=== PATIENT | female | born 1940 | race Caucasian/White ===

== ENCOUNTER 2017-01-14 09:39 | Inpatient (IN) ==
--- NOTE | 2017-01-13 20:52 | Discharge Summary ---
<Antonia Hernandez E - Last Filed: 01/13/17 20:53> Date of Encounter: 01/13/17 - Discharge Diagnosis (1) Osteoarthritis of right knee Priority: Primary Status: Chronic Qualifiers: Osteoarthritis type: unspecified Qualified Code(s): M17.11 - Unilateral primary osteoarthritis, right knee (2) Diabetes mellitus Priority: Secondary Status: Chronic Qualifiers: Diabetes mellitus type: type 2 Diabetes mellitus complication status: with unspecified complications Diabetes mellitus nursing home insulin use: with terminal clerk use Qualified Code(s): E11.8 - Type 2 diabetes mellitus with unspecified complications; Z79.4 - FPC (current) use of insulin (3) Hypertension Priority: Secondary Status: Chronic Qualifiers: Hypertension type: unspecified Qualified Code(s): I10 - Essential (primary ) hypertension (4) Hyperlipidemia Status: Acute (5) Paroxysmal atrial fibrillation Priority: Secondary Status: Chronic (6) GERD (gastroesophageal reflux disease) Priority: Secondary Status: Chronic Qualifiers: Esophagitis presence: esophagitis presence not specified Qualified Code(s) : K21.9 - Gastro-esophageal reflux disease without esophagitis (7) Obesity Priority: Secondary Status: Chronic Qualifiers: Obesity type: unspecified obesity type Obesity classification: unspecified obesity classification Serious obesity comorbidity presence: unspecified whether serious comorbidity present Qualified Code(s): E66.9 - Obesity, unspecified; Z68.38 - Body mass index (BMI) 38.0-38.9, adult - Discharge Medications Home Medications: Insulin Aspart Prot/Insuln Asp [Novolog Mix 70-30 Flexpen Syrn] 5 unit SQ TIDAC 04/26/15 [History] Insulin Glargine,Hum.rec.anlog [Lantus Solostar] 16 unit SQ HS 04/26/15 [History ] Metoprolol XL (24 HR) Succ [Toprol Xl] 25 mg PO QAM 04/26/15 [History] Pantoprazole Sodium 40 mg PO DAILY 04/26/15 [History] Citalopram [CeleXA] 20 mg PO DAILY 10/22/16 [History] Multivitamin [Multivitamins] 1 tab PO DAILY 10/22/16 [History] Warfarin [Coumadin] 2.5 mg PO Q48H 10/22/16 [History] OxyCODONE Immed Rel [Roxicodone 5 MG] 5 mg PO Q6HR PRN 7 Days #28 tablet [Rx] Enoxaparin [Lovenox] 40 mg SQ BID 01/14/17 [History] Lisinopril/Hydrochlorothiazide [Zestoretic 20-25 mg Tablet] 1 tab PO DAILY 01/14 [History] Metoprolol XL (24 HR) Succ [Toprol Xl] 50 mg PO HS 01/14/17 [History] Simvastatin [Zocor] 40 mg PO HS 01/14/17 [History] Warfarin Sodium 2 mg PO Q48H 01/14/17 [History] Allergies/Adverse Reactions: 3 Allergy/AdvReac Type Severity Reaction Status Date / Time Penicillins AdvReac Rash Verified 01/14/17 10:01 Primary care physician: Hazel Franks, - Patient Status Disposition: Home, Self-Care Condition: Good - Discharge Instructions Follow Up With: Rm Collier MD [Partnered Physician] - Hazel Franks MD [Primary Care Provider] - Additional Instructions: Discharge Instructions: Total Knee Replacement Please call [facility] ([phone]), your Primary Care Physician, or report to the Emergency Room if you have any of the following symptoms: Nausea, vomiting, fever greater that 101.5, swelling, chest pain, shortness of breath, increased pain/redness/drainage/odor for your incision site, numbness/ tingling, or any other concerning symptoms. ACTIVITY:Weight-bearing as tolerated. You may progress off support (crutches or walker) as tolerated. MEDICATIONS: Upon discharge resume your home medications. Take all the medications as prescribed. Take a stool softener if taking narcotic pain medications. Stool softeners are only effective if you drink enough fluids. Drink 6-8 glass of water or fluids a day, unless this is not allowed for another health problem. Despite using stool softeners, if you haven't had a bowel movement in 3 days, please switch to a gentle laxative. Gentle laxatives are sold over the counter. You should have a bowel movement within 24 hours, if not call the office. You will be discharged from the hospital with a prescription for pain medication. You are encouraged to decrease the use of narcotic pain medication as tolerated. Should you require a refill, please call the office. [facility] prescribes narcotic pain medication for only 4-6 weeks after surgery. If you require pain medication beyond this time period, you may be referred to your Primary Care Physician or to the Pain Clinic for further evaluation. Plan ahead for refills on pain medication as many narcotics either need to be picked up at the office or mailed. It is best to call 48-72 hours in advance of needing a prescription refill so you don't run out of medication. To help control the post-operative pain, you may take NSAIDs (Aleve,Advil, Motrin, Ibuprofen, Naprosyn) or Tylenol as prescribed on the bottle in addition to the pain medication. ANTICOAGULATION (blood thinners): Continue your Aspirin, Lovenox or Coumadin as prescribed to help prevent a blood clot in the leg or in the lungs. As long as your incision remains dry and you tolerate the NSAIDs (Aleve, Advil, Motrin, ibuprofen, naprosyn), it is OK to use the NSAIDS while you are taking your anticoagulation medication. Should your incision start to drain, stop the NSAID and contact our office. Common symptoms of blood clot in the legs include: localized pain, swelling, calf tenderness, redness or discoloration of the skin. Blood clot in the lung symptoms include: shortness of breath, rapid pulse, sweating, and chest pain that worsens with deep breathing, coughing up blood, lightheadedness, feelings of anxiety. If you experience any of these symptoms notify your physician immediately, go to the emergency room, or if having trouble breathing, call 911. WOUND CARE: Leave the dressing on for 7 to 10days. You may change the dressing if it becomes saturated greater than 50%. Do not get the dressing wet at anytime. Wash your hands with antibacterial soap, rinse and dry prior to any wound care. If you have johanna the visiting nurse or rehab facility can remove the stapes 10-14 days after surgery and place steri-strips across the wound. Leave the steri-strips in place until they fall off on their won. You may let water from the shower run on top of the steri-strips. If you do not have a visiting nurse or rehab facility, you will need to return to the office at 10-14 days for the johanna to be removed. If you have itching or redness around the dressing call the office. FOLLOW-UP: Please follow up with your surgeon in the orthopedic clinic in 4 weeks from the day of surgery. If you have johanna that need to be removed, you will need to come back to the office in 10-14 days from the day of surgery. Discharge Instructions: Total Knee Replacement Please call [facility] ([phone]), your Primary Care Physician, or report to the Emergency Room if you have any of the following symptoms: Nausea, vomiting, fever greater that 101.5, swelling, chest pain, shortness of breath, increased pain/redness/drainage/odor for your incision site, numbness/ tingling, or any other concerning symptoms. ACTIVITY:Weight-bearing as tolerated. You may progress off support (crutches or walker) as tolerated. MEDICATIONS: Upon discharge resume your home medications. Take all the medications as prescribed. Take a stool softener if taking narcotic pain medications. Stool softeners are only effective if you drink enough fluids. Drink 6-8 glass of water or fluids a day, unless this is not allowed for another health problem. Despite using stool softeners, if you haven't had a bowel movement in 3 days, please switch to a gentle laxative. Gentle laxatives are sold over the counter. You should have a bowel movement within 24 hours, if not call the office. You will be discharged from the hospital with a prescription for pain medication. You are encouraged to decrease the use of narcotic pain medication as tolerated. Should you require a refill, please call the office. [facility] prescribes narcotic pain medication for only 4-6 weeks after surgery. If you require pain medication beyond this time period, you may be referred to your Primary Care Physician or to the Pain Clinic for further evaluation. Plan ahead for refills on pain medication as many narcotics either need to be picked up at the office or mailed. It is best to call 48-72 hours in advance of needing a prescription refill so you don't run out of medication. To help control the post-operative pain, you may take NSAIDs (Aleve,Advil, Motrin, Ibuprofen, Naprosyn) or Tylenol as prescribed on the bottle in addition to the pain medication. ANTICOAGULATION (blood thinners): Continue your Aspirin, Lovenox or Coumadin as prescribed to help prevent a blood clot in the leg or in the lungs. As long as your incision remains dry and you tolerate the NSAIDs (Aleve, Advil, Motrin, ibuprofen, naprosyn), it is OK to use the NSAIDS while you are taking your anticoagulation medication. Should your incision start to drain, stop the NSAID and contact our office. Common symptoms of blood clot in the legs include: localized pain, swelling, calf tenderness, redness or discoloration of the skin. Blood clot in the lung symptoms include: shortness of breath, rapid pulse, sweating, and chest pain that worsens with deep breathing, coughing up blood, lightheadedness, feelings of anxiety. If you experience any of these symptoms notify your physician immediately, go to the emergency room, or if having trouble breathing, call 911. WOUND CARE: Leave the dressing on for 7 to 10days. You may change the dressing if it becomes saturated greater than 50%. Do not get the dressing wet at anytime. Wash your hands with antibacterial soap, rinse and dry prior to any wound care. If you have johanna the visiting nurse or rehab facility can remove the stapes 10-14 days after surgery and place steri-strips across the wound. Leave the steri-strips in place until they fall off on their won. You may let water from the shower run on top of the steri-strips. If you do not have a visiting nurse or rehab facility, you will need to return to the office at 10-14 days for the johanna to be removed. If you have itching or redness around the dressing call the office. FOLLOW-UP: Please follow up with your surgeon in the orthopedic clinic in 4 weeks from the day of surgery. If you have johanna that need to be removed, you will need to come back to the office in 10-14 days from the day of surgery. - Hospital Course Hospital course: Ms. Zamorano is a 76 year old female - Time Spent with Patient Total time spent providing and/or coordinating discharge services: - VTE Documentation of Mechanical Device: Venous foot pump, device <Rm Collier - Last Filed: 01/19/17 13:51> Date of Encounter: 01/19/17 Time of Encounter: 13:50 - Discharge Diagnosis (1) Osteoarthritis of right knee Priority: Primary Status: Chronic Qualifiers: Osteoarthritis type: unspecified Qualified Code(s): M17.11 - Unilateral primary osteoarthritis, right knee (2) Diabetes mellitus Priority: Secondary Status: Chronic Qualifiers: Diabetes mellitus type: type 2 Diabetes mellitus complication status: with unspecified complications Diabetes mellitus nursing home insulin use: with terminal clerk use Qualified Code(s): E11.8 - Type 2 diabetes mellitus with unspecified complications; Z79.4 - terminologist (current) use of insulin (3) Hypertension Priority: Secondary Status: Chronic Qualifiers: Hypertension type: unspecified Qualified Code(s): I10 - Essential (primary ) hypertension (4) Hyperlipidemia Priority: Secondary Status: Chronic Qualifiers: Hyperlipidemia type: unspecified Qualified Code(s): E78.5 - Hyperlipidemia , unspecified (5) Paroxysmal atrial fibrillation Priority: Secondary Status: Chronic (6) GERD (gastroesophageal reflux disease) Priority: Secondary Status: Chronic Qualifiers: Esophagitis presence: esophagitis presence not specified Qualified Code(s) : K21.9 - Gastro-esophageal reflux disease without esophagitis (7) Obesity Priority: Secondary Status: Chronic Qualifiers: Obesity type: unspecified obesity type Obesity classification: adult class 2 (BMI 35 ? 39.9) Serious obesity comorbidity presence: unspecified whether serious comorbidity present Body mass index: BMI 38.0-38.9 Qualified Code(s) : E66.9 - Obesity, unspecified; Z68.38 - Body mass index (BMI) 38.0-38.9, adult Primary care physician: Hazel Franks, - Patient Status Functional capacity at discharge: uses cane/walker Overall status at discharge: patient is progressing back to baseline - Hospital Course Hospital course: Ms. Zamorano is a 76 year old female Status post total knee replacement The patient had an uneventful postoperative course. They received antibiotics and physical therapy and were discharged in stable condition. There will follow -up in the office in 2 weeks. - Time Spent with Patient Total time spent providing and/or coordinating discharge services:
[2017-01-14] MEDS ORDERED: Lidocaine -MPF 1% 2 ML VIAL ID ONE (10:04)
[2017-01-14] MEDS ORDERED: Clindamycin 900 MG/50 ML 900 MG/50 ML IV.SOLN IVPB ONE (10:04)
[2017-01-14] MEDS ORDERED: D5% in Lactated Ringers 1,000 ML IVC SCH (10:15)
[2017-01-14] MEDS ORDERED: Dexamethasone 4 MG/ML VIAL ONE ×2 (10:26→12:03)
[2017-01-14] MEDS ORDERED: Ondansetron 4 MG/2 ML VIAL ONE ×2 (10:26→12:03)
[2017-01-14] MEDS ORDERED: *HR* Succinylcholine 200 MG/10 ML VIAL IVP ONE (10:26)
[2017-01-14] MEDS ORDERED: *HR* Midazolam HCl 2 MG/2 ML VIAL ONE (10:27)
[2017-01-14] MEDS ORDERED: *HR* Propofol 200 MG/20 ML VIAL IVP ONE (10:27)
[2017-01-14] MEDS ORDERED: *HR* FentaNYL (PF) 100 MCG/2 ML VIAL ONE (10:27)
[2017-01-14] MEDS ORDERED: Plasma-Lyte A (PH 7.4) 1,000 ML IVC SCH (10:30)
--- NOTE | 2017-01-14 11:09 | Anesthesia Evaluation PreOp ---
Date of Encounter: 01/14/17 Time of Encounter: 11:07 - Past History Planned Operation: R total knee Cardiac History: HTN, Hyperlipidemia, Arrhythmia (AF) Pulmonary History: Former smoker STEAM PAN SPONGER History: Denies Any Significant HX Other Medical History: Diabetes Type II Anesthesia History: No Prior Anesthetic Complications Alcohol Use: none Drug use: none Medications and Allergies Insulin Aspart Prot/Insuln Asp [Novolog Mix 70-30 Flexpen Syrn] 5 unit SQ TIDAC 04/26/15 [History] Insulin Glargine,Hum.rec.anlog [Lantus Solostar] 16 unit SQ HS 04/26/15 [History ] Metoprolol XL (24 HR) Succ [Toprol Xl] 25 mg PO QAM 04/26/15 [History] Pantoprazole Sodium 40 mg PO DAILY 04/26/15 [History] Citalopram [CeleXA] 20 mg PO DAILY 10/22/16 [History] Multivitamin [Multivitamins] 1 tab PO DAILY 10/22/16 [History] Warfarin [Coumadin] 2.5 mg PO Q48H 10/22/16 [History] OxyCODONE Immed Rel [Roxicodone 5 MG] 5 mg PO Q6HR PRN 7 Days #28 tablet [Rx] Enoxaparin [Lovenox] 40 mg SQ BID 01/14/17 [History] Lisinopril/Hydrochlorothiazide [Zestoretic 20-25 mg Tablet] 1 tab PO DAILY 01/14 [History] Metoprolol XL (24 HR) Succ [Toprol XL] 50 mg PO HS 01/14/17 [History] Simvastatin [Zocor] 40 mg PO HS 01/14/17 [History] Warfarin Sodium [Warfarin Sodium] 2 mg PO Q48H 01/14/17 [History] 3 Allergy/AdvReac Type Severity Reaction Status Date / Time Penicillins AdvReac Rash Verified 01/14/17 10:01 - Meds/Allergy Pre-op Review Medications Reviewed: Yes Allergies Reviewed: Yes Beta Blockers on Current Med List: Yes If Beta Blockers taken, Date/Time (Last Dose taken): 01-14-17 metoprolol 7 am Anesthesia Results - Labs Laboratory Tests 12/27/16 12/27/16 12/27/16 10:04 10:04 10:04 WBC 5.7 Hgb 13.2 Hct 41.7 Plt Count 159 Sodium 138 Potassium 4.2 Chloride 101 Carbon Dioxide 27 BUN 19 Creatinine 0.94 Est GFR ( Amer) > 60 Est GFR (Non-Af Amer) 58 L BUN/Creatinine Ratio 20 Glucose 196 H Est Mean Plasma Glucose 146 Hemoglobin A1c 6.7 H - Imaging EKG: report reviewed, image reviewed Additional studies: TTE: Impressions: LVEF 60%. Indeterminate left ventricular diastolic function. Severe bi-atrial enlargement. Dilated RV with normal function. Mild aortic regurgitation. Mild-moderate mitral regurgitation. Moderate-severe tricuspid regurgitation. Moderate pulmonary hypertension. Anesthesia Exam Last Vital Signs Temp 97.7 F 01/14/17 10:15 Pulse 99 01/14/17 10:15 Resp 18 01/14/17 10:15 BP 123/74 01/14/17 10:15 Pulse Ox 96 01/14/17 10:15 Weight: 99 kg - HEENT Pupil (Motor): Pupils equal, EOMI Mallampati: II Teeth: Normal, Poor dentition Oral Opening: Greater than 3 - STEAM PAN SPONGER LOC: Oriented STEAM PAN SPONGER Motor: Normal RUE, Normal LUE, Normal RLE, Normal LLE, Normal Face - Cardiac Rhythm: Regular Murmur: None - Pulmonary Breath Sounds: bilateral Clear Respiratory Effort: Symmetrical Anesthesia Assess/Plan ASA Score: 3 Modified [place] Scale for Level of Consciousness: Cooperative, oriented, and tranquil Anesthetic Plan: General, Regional Monitoring Plan: Standard Monitors Recovery Plan: PACU
[2017-01-14] MEDS ORDERED: ROPIVACAINE HCL/PF 0.5% 30 ML VIAL ONE (11:10)
[2017-01-14] MEDS ORDERED: Bupivacaine/Clonidine Syringe 1 EACH SYRINGE ONE (11:11)
--- NOTE | 2017-01-14 11:13 | History & Physical Report ---
Date of Encounter: 01/14/17 Time of Encounter: 11:12 24 Hour HP Update - Instructions Instructions: If the History and Physical is less than 30 days old and was completed prior to A.M. admission and or procedure and has NOT been updated on calendar day of procedure please complete this update prior to performing procedure. - Update Patient reports changes in Medical Condition: No Changes in examination, assessment, or condition: No Changes in Medication: No Preop tests/diagnostics Reviewed: Yes Surgery Remains Indicated: Yes Consent for Planned Operative Procedure(s) Verified: Yes - Pre-Operative Checklist Preoperative Checklist Indicated: No Prophylactic Antibiotic Ordered: Yes Is VTE Prophylaxis Indicated?: Yes
[2017-01-14] MEDS ORDERED: *HR* Labetalol 20 MG/4 ML SYRINGE IVP PRN (11:45)
[2017-01-14] MEDS ORDERED: Ringers Solution, Lactated 1,000 ML IVC SCH (11:45)
[2017-01-14] MEDS ORDERED: *HR* HYDROmorphone (PF) 1 MG/ML SYRINGE IVP PRN ×2 (11:45→13:55)
[2017-01-14] MEDS ORDERED: Albuterol 2.5 MG/3 ML NEBULIZER IH ONE (11:45)
[2017-01-14] MEDS ORDERED: Ondansetron 4 MG/2 ML VIAL IVP ONE (11:45)
--- NOTE | 2017-01-14 11:45 | Anesthesia Procedures ---
Date of Encounter: 01/14/17 Time of Encounter: 11:20 Procedures: Anesthesia - Nerve Block Procedure Date: 01/14/17 Time: 11:20 Allergies/Adv Reactions: PCN Pre-op Diagnosis: Right knee arthritis Surgical Procedure: Right total knee arthroplasty Checklist: Correct Patient Identifier, Correct procedure, History checked Correct side: Right Blood Thinner: No Monitor Applied: EKG, BP, Pulse Oximetry Supplemental Oxygen via Nasal Cannula (L/min): 2 Sedation: Versed (mg): 2 Sedation: Fentanyl (mcg): 50 Indication: Post Op Analgesia Pre-op Neuro Deficits: Yes Block Type: Femoral, Other (IPAC) Catheter placed: No Sterile Technique: Yes Ultrasound used: Yes Anatomy identified: Yes Visual spread of Local: Yes Neuro Stimulation: Yes Nerve Stimulator Range: 0.2 - 0.4 mA Blood on Needle Aspiration: No Smooth Injection of Local: Yes Pain with Injection of Local: No Prep: Chlorhexadine Needle: 22 x 50 mm Stimuplex, 21 x 100 mm Stimuplex Local: 0.25% Bupivicaine w/Clonidine 20 mcg/cc (20ml IPAC), Ropivacaine (30ml femoral 0.5%) Volume (cc): 50 Number of Attempts: 1 Complications: None/effective block Vitals: Vital Signs Temperature 97.7 F 01/14/17 10:11 Pulse Rate 99 01/14/17 10:11 Respiratory Rate 18 01/14/17 10:11 Blood Pressure 123/74 01/14/17 10:11 O2 Sat by Pulse Oximetry 96 01/14/17 10:11 Temperature 97.7 F 01/14/17 10:15 Pulse Rate 72 01/14/17 11:19 Respiratory Rate 15 01/14/17 11:19 Blood Pressure 132/75 01/14/17 11:19 O2 Sat by Pulse Oximetry 96 01/14/17 11:19
[2017-01-14] MEDS ORDERED: *HR* Magnesium Sulfate 1 GM/2 ML VIAL ONE (11:57)
[2017-01-14] MEDS ORDERED: Ketamine *HR* 500 MG/10 ML MDV ONE (11:57)
[2017-01-14] MEDS ORDERED: Ketorolac 30 MG/ML VIAL ONE (12:04)
[2017-01-14] MEDS ORDERED: Acetaminophen IV 1,000 MG/100 ML INFUS..BTL ONE (12:07)
--- NOTE | 2017-01-14 12:35 | Orthopedic Operative Note ---
Date of procedure: 01/14/17 Pre-op diagnosis: Right knee arthritis Post-op diagnosis: same Procedure: Procedure: Right Total knee replacement Estimated blood loss: 200 cc Hardware: Metal and polyethylene replacement. Arthrex Femur: 6 Tibia: 6 PS insert: 12 Patella: 40 Exam Under anesthesia: Loss of full extension 5 degrees full flexion no instability Procedural Notes: Patient noted to have grade 4 arthritic changes medial compartment patellofemoral joint. Operative procedure: The patient was brought to the operating room and placed on the operating room table. After general anesthesia was administered the operative knee was examined. Findings were noted in the exam under anesthesia. The operative extremity was prepped and draped in sterile surgical fashion. The patient received IV antibiotics prior to skin incision. A standard midline incision was made centered over the patella. The incision was made through the skin and subcutaneous tissue. A medial parapatellar tendon approach was performed. Care was taken to preserve tissue along the medial aspect of the patella. And to protect the patella tendon. The deep MCL was released off the medial tibia. The infra patella fat pad was excised. Knee was brought into flexion. Patient noted to have grade 4 arthritic changes medial compartment and patellofemoral joint. The entry hole was made for the intramedullary femoral guide. The guide was seated in 6 degrees of valgus. Anterior cut was made followed by the distal cut. The ACL the PCL the medial and the lateral menisci were excised. The tibia was subluxed forward. The entry hole was made for the intramedullary tibial guide. Guide was seated to resect 2 mm off the more abnormal side. The knee was brought into flexion the distal femur was sized to a 6. The femoral guide was seated, the anterior cut was made followed by the posterior condylar cut, followed by the chamfer cuts. The finishing guide was seated the box cut was made and the lug holes were drilled. The tibia was sized to a 6, the tibial tray was seated and prepared with the large drill followed by the fin cutter. Trial reduction revealed full extension no varus valgus instability with the appropriate 12 PS Isabella. The patella was everted and cut was made at the level of the insertion of the quadriceps and patella tendon. The patella was sized to 40 the guide was seated and the lug holes are drilled. Trial reduction revealed excellent patella tracking. All trial components were removed all bony surfaces were irrigated. The tibia was cemented first followed by the femur. The 12 PS Isabella was seated and the knee was brought into full extension. The patella was cemented and held in place with the patellar holding clamp. After the cement had hardened, the knee sat for 2 minutes with a Betadine saline solution. The knee was closed by the PA. The knee was then irrigated out with 2 L of pulse irrigation. The extensor mechanism was closed with #2 FiberWire suture and #2 PDS suture. The subcutaneous tissue was then irrigated and closed deep with #1 PDS suture superficially with 0 PDS suture and skin was closed with skin johanna. The patient was then placed in a sterile dressing and a postoperative brace extubated and transferred to recovery room in stable condition. Anesthesia: EMILIO Surgeon: Rm Collier Fortune Teller: Antonia Hernandez Condition: stable Disposition: PACU
--- NOTE | 2017-01-14 13:41 | Anesthesia Evaluation Post Op ---
Date of Encounter: 01/14/17 Time of Encounter: 13:40 - Vital Signs Vital Signs: Vital Signs/O2 Sat, Most Current Temp Pulse Resp BP Pulse Ox 97.3 F L 58 18 101/48 98 01/14/17 13:13 01/14/17 13:33 01/14/17 13:33 01/14/17 13:33 01/14/17 13:33 - Lungs Lungs: Clear Ascult./Percussion - Airway Airway: Non-obstructed - Cardiovascular Regular Rate - Mental Status Mental Status: Alert & Oriented, Answers Appropriately - Pain Pain Scale: 3 Pain Scale used: Numeric (1 - 10) - Nausea Vomiting Nausea Vomiting: Not Present - Hydration Hydration: NPO, Has not voided - Discharge PostOp Status: Transfer Patient to floor
[2017-01-14] MEDS ORDERED: Dextrose Gel 15 GM PO PRN ×2 (13:55)
[2017-01-14] MEDS ORDERED: Naloxone 0.4 MG/ML INJ IVP PRN (13:55)
[2017-01-14] MEDS ORDERED: Sennosides 8.6 MG TABLET PO PRN (13:55)
[2017-01-14] MEDS ORDERED: MOM Conc 10 ML UD.LIQ PO PRN (13:55)
[2017-01-14] MEDS ORDERED: *HR* Dextrose 50 % in Water (Syg) 50 ML SYRINGE IVP PRN (13:55)
[2017-01-14] MEDS ORDERED: Temazepam 15 MG CAPSULE PO PRN (13:55)
[2017-01-14] MEDS ORDERED: Ondansetron 4 MG/2 ML VIAL IVP PRN (13:55)
[2017-01-14] MEDS ORDERED: D5% in Water 1,000 ML IVC PRN (13:55)
[2017-01-14 13:59] LABS: Hematocrit 36.1 % (35.3-44.9); Hemoglobin 11.5 g/dL (11.5-15.4)
[2017-01-14] MEDS: Clindamycin 900 MG/50 ML 900 MG/50 ML IV.SOLN IVPB SCH ×2 (15:54→23:32)
[2017-01-14] MEDS ORDERED: *HR* Enoxaparin 30 MG/0.3 ML SYRINGE SQ SCH (18:00)
[2017-01-14] MEDS: Insulin LISPRO 300 UNITS/3 ML VIAL SQ SCH ×2 (18:09→21:05)
[2017-01-14] MEDS: *HR* Enoxaparin 30 MG/0.3 ML SYRINGE SQ SCH (18:09)
[2017-01-14] MEDS: Metoprolol XL (24 HR) Succ 50 MG TAB.ER.24H PO SCH (21:02)
[2017-01-14] MEDS: Insulin DETEMIR 100 UNIT/ML X5UNITS SQ SCH (21:50)
[2017-01-14] MEDS: Insulin NPH/REG 70/30 100 UNIT/ML (x5UNIT) SQ SCH (22:33)
[2017-01-14 23:25] LABS: INR 1.2; Prothrombin Time 13.4 Seconds (9.4-12.1)
[2017-01-15 05:08] LABS: Hematocrit 33.8 % (35.3-44.9); Hemoglobin 10.8 g/dL (11.5-15.4)
[2017-01-15 05:20] LABS: Calcium 9.1 mg/dL (8.6-10.8); Potassium 4.9 mEq/L (3.5-4.5)
[2017-01-15] MEDS: *HR* Enoxaparin 30 MG/0.3 ML SYRINGE SQ SCH ×2 (05:45→17:29)
[2017-01-15] MEDS ORDERED: *HR* Warfarin 2.5 MG TABLET PO SCH (07:00)
[2017-01-15] MEDS: Multivit/Ca/Min/Fe/FA 1 TAB TABLET PO SCH (08:18)
[2017-01-15] MEDS: Metoprolol XL (24 HR) Succ 50 MG TAB.ER.24H PO SCH ×2 (08:18→21:09)
[2017-01-15] MEDS: Insulin NPH/REG 70/30 100 UNIT/ML (x5UNIT) SQ SCH ×3 (08:18→17:29)
[2017-01-15] MEDS: Insulin LISPRO 300 UNITS/3 ML VIAL SQ SCH ×4 (08:19→21:09)
--- NOTE | 2017-01-15 08:22 | Orthopedics Progress Note ---
Date of Encounter: 01/15/17 Time of Encounter: 08:21 - Assessment and Plan (1) Osteoarthritis of right knee Current Visit: No Status: Chronic Qualifiers: Osteoarthritis type: unspecified Qualified Code(s): M17.11 - Unilateral primary osteoarthritis, right knee (2) Diabetes mellitus Current Visit: No Status: Chronic Qualifiers: Diabetes mellitus type: type 2 Diabetes mellitus complication status: with unspecified complications Diabetes mellitus jail insulin use: with jail use Qualified Code(s): E11.8 - Type 2 diabetes mellitus with unspecified complications; Z79.4 - group home (current) use of insulin (3) Hypertension Current Visit: No Status: Chronic Qualifiers: Hypertension type: unspecified Qualified Code(s): I10 - Essential (primary ) hypertension (4) Hyperlipidemia Current Visit: No Status: Chronic Qualifiers: Hyperlipidemia type: unspecified Qualified Code(s): E78.5 - Hyperlipidemia , unspecified (5) Paroxysmal atrial fibrillation Current Visit: No Status: Chronic (6) GERD (gastroesophageal reflux disease) Current Visit: No Status: Chronic Qualifiers: Esophagitis presence: esophagitis presence not specified Qualified Code(s) : K21.9 - Gastro-esophageal reflux disease without esophagitis (7) Obesity Current Visit: No Status: Chronic Qualifiers: Obesity type: unspecified obesity type Obesity classification: adult class 2 (BMI 35 ? 39.9) Serious obesity comorbidity presence: unspecified whether serious comorbidity present Body mass index: BMI 38.0-38.9 Qualified Code(s) : E66.9 - Obesity, unspecified; Z68.38 - Body mass index (BMI) 38.0-38.9, adult Subjective Interval history: Patient was seen this morning doing well without complaints. Afebrile vital signs stable. Operative extremity: Neurovascularly intact Dressing clean dry and intact Calves nontender Assessment and plan: Continue with postoperative care Hematocrit 33 Objective Vital signs: Vital Signs Temp Pulse Resp BP Pulse Ox 01/15/17 07:19 97.6 F 84 14 105/72 98 01/15/17 04:38 97.6 F 81 18 97/64 100 01/15/17 00:05 97.5 F L 63 16 101/52 99 01/14/17 20:02 97.5 F L 73 18 106/66 98 01/14/17 17:00 97.5 F L 97 16 101/69 94 01/14/17 16:00 97.5 F L 60 16 105/69 100 01/14/17 15:00 56 16 123/59 100 01/14/17 14:30 97.3 F L 77 16 122/77 100 01/14/17 13:56 97.3 F L 64 15 102/65 88 01/14/17 13:43 97.9 F 59 16 113/52 97 01/14/17 13:33 58 18 101/48 98 01/14/17 13:23 65 20 113/69 100 01/14/17 13:13 97.3 F L 55 20 113/63 97 01/14/17 11:19 72 15 132/75 96 01/14/17 10:15 97.7 F 99 18 123/74 96 01/14/17 10:11 97.7 F 99 18 123/74 96 Intake and Output 01/14/17 01/15/17 01/15/17 23:59 07:59 15:59 Intake Total 50 / 50 300 / 300 Output Total 450 / 450 Balance 50 / 50 -150 / -150 Intake: IV Fluids 50 / 50 Cleocin Premix 900 MG/50 ML 900 50 / 50 mg In 50 ml @ 50 mls/hr IVPB Q8HR [facility] Rx#:[id number] Oral 300 / 300 Output: Urine 450 / 450 Other: Blood Glucose* 407 171 - Labs CBC & BMP: 01/15/17 04:57 01/15/17 04:57 Labs: Abnormal lab results Hgb 10.8 g/dL (11.5-15.4) L 01/15/17 04:57 Hct 33.8 % (35.3-44.9) L 01/15/17 04:57 PT 13.4 Seconds (9.4-12.1) H 01/14/17 23:12 Potassium 4.9 mEq/L (3.5-4.5) H 01/15/17 04:57 BUN 24 mg/dL (7-20) H 01/15/17 04:57 Creatinine 1.19 mg/dL (0.57-1.11) H 01/15/17 04:57 Est GFR ( Amer) 53 (> 60) L 01/15/17 04:57 Est GFR (Non-Af Amer) 44 (> 60) L 01/15/17 04:57 Glucose 166 mg/dL (70-99) H 01/15/17 04:57 POC Glucose 407 (58-89) H* 01/14/17 20:27 - VTE Documentation of Mechanical Device: Venous foot pump, device Consult Discharge Plan - Plan Referrals: Hazel Franks MD [Primary Care Provider] -
[2017-01-15] MEDS: *HR* OxyCODONE Immed Rel 5 MG TABLET PO PRN ×2 (11:26→17:30)
--- NOTE | 2017-01-15 12:49 | Event Note ---
Date of Encounter: 01/15/17 Time of Encounter: 12:45 PCR - Right TKR 01/15 POD#.1 Labs: Baseline GFR 58 H/H - Stable GFR 40 - Will give bolus Patient seen at bedside. Pain control: adequate Participating in PT. All questions and concerns addressed. Educated on use of incentive spirometer, ambulation, and hydration. Patient educated on post-operative restrictions and care. Addressed: see above On Warfarin chronically - repeating PT/INR - will continue with Lovenox/ Coumadin resumption until INR therapeutic. D/C plan: [facility] to [facility] - D/C 01/17
[2017-01-15 13:27] LABS: INR 1.3
[2017-01-15] MEDS ORDERED: 0.9 % Sodium Chloride 500 ML IVC ONE (14:30)
[2017-01-15] MEDS: Insulin DETEMIR 100 UNIT/ML X5UNITS SQ SCH (21:11)
--- NOTE | 2017-01-15 22:10 | Physician Discharge Referral ---
<Antonia Hernandez E - Last Filed: 01/15/17 22:07> ExtendedCare Referral Info Transfer To: [facility] Provider in Charge: Dr. Rm Collier - Diagnosis (1) Osteoarthritis of right knee Priority: Primary Status: Chronic (2) Diabetes mellitus Priority: Secondary Status: Chronic (3) Hypertension Priority: Secondary Status: Chronic (4) Hyperlipidemia Priority: Secondary Status: Chronic (5) Paroxysmal atrial fibrillation Priority: Secondary Status: Chronic (6) GERD (gastroesophageal reflux disease) Priority: Secondary Status: Chronic (7) Obesity Priority: Secondary Status: Chronic Expected Duration of Placement: less than 30 days Prognosis: Good Aware of Diagnosis: Patient Aware of Prognosis: Patient - Transfer Medications Home Medications: Insulin Aspart Prot/Insuln Asp [Novolog Mix 70-30 Flexpen Syrn] 5 unit SQ TIDAC 04/26/15 [History] Insulin Glargine,Hum.rec.anlog [Lantus Solostar] 16 unit SQ HS 04/26/15 [History ] Metoprolol XL (24 HR) Succ [Toprol Xl] 25 mg PO QAM 04/26/15 [History] Pantoprazole Sodium 40 mg PO DAILY 04/26/15 [History] Citalopram [CeleXA] 20 mg PO DAILY 10/22/16 [History] Multivitamin [Multivitamins] 1 tab PO DAILY 10/22/16 [History] Warfarin [Coumadin] 2.5 mg PO Q48H 10/22/16 [History] OxyCODONE Immed Rel [Roxicodone 5 MG] 5 mg PO Q6HR PRN 7 Days #28 tablet [Rx] Enoxaparin [Lovenox] 40 mg SQ BID 01/14/17 [History] Lisinopril/Hydrochlorothiazide [Zestoretic 20-25 mg Tablet] 1 tab PO DAILY 01/14 [History] Metoprolol XL (24 HR) Succ [Toprol Xl] 50 mg PO HS 01/14/17 [History] Simvastatin [Zocor] 40 mg PO HS 01/14/17 [History] Warfarin Sodium 2 mg PO Q48H 01/14/17 [History] Allergies/Adverse Reactions: 3 Allergy/AdvReac Type Severity Reaction Status Date / Time Penicillins AdvReac Rash Verified 01/14/17 10:01 - Respiratory Orders Smoking Cessation: Smoking cessation has been advised. For more information, call the [place] [employer] Quit Line at 7-309-OCGR-NOW. - Lab Orders Lab Orders: Other (include drug levels w/frequency) (PT/INR every 48-72 hours until INR therapeutic (2.0-3.0)) - Ancillary Orders May use pressure relief devices daily prn, May go on [place] w/family/respon democrat w /meds at nurse discretion PRN, May consult with Dentist, Sample Maker Original, Track Inspecting Supervisor PRN - Mobility Orders Chair, Ambulate - Rehabiliation Orders Rehab Potential: Good Rehab Orders: ROM Exercises, Evaluation for Physical Therapy, Evaluation for Occupational Therapy Other: Total Knee replacement Precautions x 6 weeks Apply cold therapy wrap 3-6x/day for 20 minutes at a time. Encourage ambulation throughout the day and incentive spirometer 10x/hour. Elevate affected extremity above heart as tolerated. Brace: Wear knee immobilizer at night x 2 weeks. - Treatments Skin tear care topically daily PRN per policy List/Other: Opsite dressing, leave intact until first post-operative visit. If dressing becomes greater than 50% saturated, contact office, remove dressing and place appropriate dressing in its place. Do not allow for dressing to get wet. [place] in place, plan to remove at post-operative day #14-16. - Diet Orders Regular CERTIFICATION: I certify that the transfer of the above named patient to an Extended Care Facility is necessary for the continuing treatment of the diagnosis listed. The above information is true and accurate reflection of patient's current condition. Confidential - Redisclosure prohibited without a patient's written consent. <Rm Collier - Last Filed: 01/19/17 13:51> - Diagnosis (1) Osteoarthritis of right knee Status: Chronic (2) Diabetes mellitus Status: Chronic (3) Hypertension Status: Chronic (4) Hyperlipidemia Status: Chronic (5) Paroxysmal atrial fibrillation Status: Chronic (6) GERD (gastroesophageal reflux disease) Status: Chronic (7) Obesity Status: Chronic - Respiratory Orders Smoking Cessation: Smoking cessation has been advised. For more information, call the [place] [employer] Quit Line at 9-495-UOVZ-NOW. CERTIFICATION: I certify that the transfer of the above named patient to an Extended Care Facility is necessary for the continuing treatment of the diagnosis listed. The above information is true and accurate reflection of patient's current condition. Confidential - Redisclosure prohibited without a patient's written consent.
[2017-01-16] MEDS: *HR* OxyCODONE Immed Rel 5 MG TABLET PO PRN ×3 (06:07→18:05)
[2017-01-16 06:08] LABS: Hematocrit 29.4 % (35.3-44.9); Hemoglobin 9.3 g/dL (11.5-15.4)
[2017-01-16] MEDS: *HR* Enoxaparin 30 MG/0.3 ML SYRINGE SQ SCH (06:08)
[2017-01-16 06:23] LABS: Calcium 8.4 mg/dL (8.6-10.8); Potassium 4.3 mEq/L (3.5-4.5)
--- NOTE | 2017-01-16 06:23 | Orthopedics Progress Note ---
Date of Encounter: 01/16/17 Time of Encounter: 06:22 - Assessment and Plan (1) Osteoarthritis of right knee Current Visit: No Status: Chronic Qualifiers: Osteoarthritis type: unspecified Qualified Code(s): M17.11 - Unilateral primary osteoarthritis, right knee (2) Diabetes mellitus Current Visit: No Status: Chronic Qualifiers: Diabetes mellitus type: type 2 Diabetes mellitus complication status: with unspecified complications Diabetes mellitus [facility] insulin use: with [facility] use Qualified Code(s): E11.8 - Type 2 diabetes mellitus with unspecified complications; Z79.4 - half-way (current) use of insulin (3) Hypertension Current Visit: No Status: Chronic Qualifiers: Hypertension type: unspecified Qualified Code(s): I10 - Essential (primary ) hypertension (4) Hyperlipidemia Current Visit: No Status: Chronic Qualifiers: Hyperlipidemia type: unspecified Qualified Code(s): E78.5 - Hyperlipidemia , unspecified (5) Paroxysmal atrial fibrillation Current Visit: No Status: Chronic (6) GERD (gastroesophageal reflux disease) Current Visit: No Status: Chronic Qualifiers: Esophagitis presence: esophagitis presence not specified Qualified Code(s) : K21.9 - Gastro-esophageal reflux disease without esophagitis (7) Obesity Current Visit: No Status: Chronic Qualifiers: Obesity type: unspecified obesity type Obesity classification: adult class 2 (BMI 35 ? 39.9) Serious obesity comorbidity presence: unspecified whether serious comorbidity present Body mass index: BMI 38.0-38.9 Qualified Code(s) : E66.9 - Obesity, unspecified; Z68.38 - Body mass index (BMI) 38.0-38.9, adult Subjective Interval history: Patient was seen this morning doing well without complaints. Afebrile vital signs stable. Operative extremity: Neurovascularly intact Dressing clean dry and intact Calves nontender Assessment and plan: Continue with postoperative care Plan for discharge when approved at facility Objective Vital signs: Vital Signs Temp Pulse Resp BP Pulse Ox 01/16/17 05:11 98.3 F 93 14 88/56 95 01/15/17 23:11 97.8 F 75 18 94/62 94 01/15/17 20:42 97.4 F L 86 16 105/66 93 01/15/17 16:08 97.5 F L 69 16 106/75 99 01/15/17 11:37 97.6 F 81 14 97/58 99 09/28/17 07:19 97.6 F 84 14 105/72 98 Intake and Output 01/15/17 01/15/17 01/16/17 15:59 23:59 07:59 Intake Total 118 / 118 50 / 50 Output Total 0 / 0 Balance 118 / 118 50 / 50 0 / 0 Intake: Oral 118 / 118 50 / 50 Output: Urine 0 / 0 Other: Meal Breakfast Percent of Meal Consumed 95% # Voids 1 Blood Glucose* 270 90 - Labs CBC & BMP: 01/15/17 04:57 01/15/17 04:57 Labs: Abnormal lab results Hgb 10.8 g/dL (11.5-15.4) L 01/15/17 04:57 Hct 33.8 % (35.3-44.9) L 01/15/17 04:57 PT 14.0 Seconds (9.4-12.1) H 01/15/17 12:57 Potassium 4.9 mEq/L (3.5-4.5) H 01/15/17 04:57 BUN 24 mg/dL (7-20) H 01/15/17 04:57 Creatinine 1.19 mg/dL (0.57-1.11) H 01/15/17 04:57 Est GFR ( Amer) 53 (> 60) L 01/15/17 04:57 Est GFR (Non-Af Amer) 44 (> 60) L 01/15/17 04:57 Glucose 166 mg/dL (70-99) H 01/15/17 04:57 POC Glucose 90 (58-89) H 01/15/17 20:48 - VTE Documentation of Mechanical Device: Venous foot pump, device Consult Discharge Plan - Plan Referrals: Hazel Franks MD [Primary Care Provider] -
[2017-01-16] MEDS ORDERED: *HR* Warfarin 2 MG TABLET PO SCH (07:00)
[2017-01-16] MEDS: Insulin NPH/REG 70/30 100 UNIT/ML (x5UNIT) SQ SCH ×3 (07:49→17:02)
[2017-01-16] MEDS: Multivit/Ca/Min/Fe/FA 1 TAB TABLET PO SCH (07:49)
[2017-01-16] MEDS: Metoprolol XL (24 HR) Succ 50 MG TAB.ER.24H PO SCH ×2 (07:50→21:30)
[2017-01-16] MEDS: Insulin LISPRO 300 UNITS/3 ML VIAL SQ SCH ×4 (07:50→21:29)
[2017-01-16 12:18] LABS: INR 1.5; Prothrombin Time 16.4 Seconds (9.4-12.1)
[2017-01-16] MEDS ORDERED: Warfarin perPT PO PRN (18:00)
[2017-01-16] MEDS: *HR* Enoxaparin 100 MG/ML SYRINGE SQ SCH (18:05)
[2017-01-16] MEDS: Ringers Solution, Lactated 1,000 ML IVC SCH ×3 (18:09→18:42)
[2017-01-16] MEDS: Insulin DETEMIR 100 UNIT/ML X5UNITS SQ SCH (21:29)
[2017-01-17 03:08] LABS: INR 1.6; Prothrombin Time 17.1 Seconds (9.4-12.1)
[2017-01-17] MEDS: *HR* Enoxaparin 100 MG/ML SYRINGE SQ SCH (06:47)
[2017-01-17] MEDS: Multivit/Ca/Min/Fe/FA 1 TAB TABLET PO SCH (08:26)
[2017-01-17] MEDS: Insulin LISPRO 300 UNITS/3 ML VIAL SQ SCH ×2 (08:27→12:23)
[2017-01-17] MEDS: Insulin NPH/REG 70/30 100 UNIT/ML (x5UNIT) SQ SCH ×2 (08:27→12:23)
[2017-01-17] MEDS: Metoprolol XL (24 HR) Succ 50 MG TAB.ER.24H PO SCH (08:27)
[2017-01-17] MEDS: *HR* OxyCODONE Immed Rel 5 MG TABLET PO PRN ×2 (08:27→12:57)
--- NOTE | 2017-01-17 08:35 | Orthopedics Progress Note ---
Date of Encounter: 01/17/17 Time of Encounter: 08:34 Subjective Interval history: Patient was seen this morning doing well without complaints. Afebrile vital signs stable. Operative extremity: Neurovascularly intact Dressing clean dry and intact Calves nontender Assessment and plan: Continue with postoperative care; Anticipate D/C today Objective Vital signs: Vital Signs Temp Pulse Resp BP Pulse Ox 01/17/17 07:20 98.2 F 96 16 127/78 94 01/17/17 03:39 98.0 F 85 16 117/74 97 01/16/17 23:06 98.9 F 103 18 105/71 93 01/16/17 19:00 98.7 F 90 18 115/62 97 01/16/17 16:32 98.2 F 94 16 97/62 95 01/16/17 14:39 86 18 97/56 95 01/16/17 10:26 96 01/16/17 10:25 97.9 F 84 16 86/59 Intake and Output 01/16/17 01/17/17 01/17/17 23:59 07:59 15:59 Intake Total 690 / 690 Output Total 1200 / 1200 800 / 800 Balance -510 / -510 -800 / -800 Intake: Oral 690 / 690 Output: Urine 1200 / 1200 800 / 800 Other: Meal Dinner Percent of Meal Consumed 20% Stool Size Moderate Stool Consistency formed Stool Color Brown # Voids 1 # Bowel Movements 1 Weight 103 kg Blood Glucose* 183 158 Patient Weight 01/17/17 23:59 Weight 103 kg - Labs CBC & BMP: 01/16/17 05:56 01/16/17 05:56 Labs: Abnormal lab results Hgb 9.3 g/dL (11.5-15.4) L D 01/16/17 05:56 Hct 29.4 % (35.3-44.9) L 01/16/17 05:56 PT 17.1 Seconds (9.4-12.1) H 01/17/17 02:25 Sodium 133 mEq/L (136-145) L 01/16/17 05:56 BUN 38 mg/dL (7-20) H D 01/16/17 05:56 Creatinine 1.25 mg/dL (0.57-1.11) H 01/16/17 05:56 Est GFR ( Amer) 50 (> 60) L 01/16/17 05:56 Est GFR (Non-Af Amer) 42 (> 60) L 01/16/17 05:56 BUN/Creatinine Ratio 30 (6-26) H 01/16/17 05:56 Glucose 149 mg/dL (70-99) H 01/16/17 05:56 POC Glucose 183 (58-89) H 01/16/17 20:18 Calcium 8.4 mg/dL (8.6-10.8) L 01/16/17 05:56 - VTE Documentation of Mechanical Device: Venous foot pump, device Consult Discharge Plan - Plan Referrals: Hazel Franks MD [Primary Care Provider] -
[2017-01-17 11:37] VITALS: BP 139/82
[2017-01-17] MEDS ORDERED: *HR* Warfarin 2.5 MG TABLET PO SCH (18:00)
[2017-01-18] MEDS ORDERED: *HR* Warfarin 2 MG TABLET PO SCH (18:00)
== END 2017-01-17 13:00 | disposition home or self-care (01) | DRG 470 ==
LOC: SAMDAY 09:39 → 3NENU 14:35
PROVIDERS: ADMIT Orthopaedic Surgery; ATTEND Orthopaedic Surgery

== ENCOUNTER 2020-11-27 11:16 | Inpatient (IN) ==
[2020-11-27] MEDS ORDERED: 0.9 % Sodium Chloride 1,000 ML ONE (11:59)
[2020-11-27] MEDS ORDERED: 0.9 % Sodium Chloride 1,000 ML IVC ONE (12:00)
[2020-11-27] MEDS ORDERED: Ringers Solution, Lactated 1,000 ML IVC ONE (12:15)
[2020-11-27] MEDS ORDERED: Nystatin Cream 15 GM TUBE TP ONE (12:30)
[2020-11-27 12:48] LABS: Basophils % 0.2 %; Eosinophils # 0.1 K/mcL (0.0-0.6); Eosinophils % 0.7 %; Hematocrit 38.5 % (35.3-44.9); Hemoglobin 12.4 g/dL (11.5-15.4); Immature Granulocytes % 0.6 % (0-4); Lymphocytes # 0.9 K/mcL (0.6-4.6); Lymphocytes % 7.8 %; Mean Corpuscular HGB Conc 32.2 g/dL (31.6-35.5); Mean Corpuscular Hemoglobin 29.1 pg (28.0-33.3); Mean Corpuscular Volume 90.4 fL (83.0-100.0); Mean Platelet Volume 10.8 fL (9.4-12.4); Monocytes # 0.7 K/mcL (0.0-1.3); Monocytes % 6.5 %; Neutrophils # 9.4 K/mcL (1.6-8.9); Platelet Count 192 K/mcL (140-400); Red Blood Count 4.26 M/mcL (3.82-4.97); Red Cell Distribution Width 13.9 % (11.5-14.5); Segmented Neutrophils % 84.2 %; White Blood Count 11.2 K/mcL (4.3-11.1)
[2020-11-27 12:56] LABS: Troponin I 0.04 ng/mL (< 0.04)
[2020-11-27 12:57] LABS: Activated Partial Thrombo Time 50.8 Seconds (26.0-36.0)
[2020-11-27 12:58] LABS: Sodium, Urine 13.2 mEq/L
[2020-11-27] MEDS ORDERED: Cefepime HCl 1,000 MG in Water for inj. (sterile) 10 ML IVP ONE (13:00)
[2020-11-27] MEDS ORDERED: Vancomycin 1,500 MG/265 ML IV.SOLN IVPB ONE (13:00)
[2020-11-27 13:02] LABS: Albumin 2.9 g/dL (3.5-5.7); Albumin/Globulin Ratio 0.9 (1.1-2.2); Bilirubin,Direct 0.2 mg/dL (0.0-0.2); Bilirubin,Indirect 0.5 mg/dL (0.0-1.0); Bilirubin,Total 0.7 mg/dL (0.3-1.0); Calcium 8.2 mg/dL (8.6-10.3); Globulin 3.1 g/dL (2.4-3.5); Magnesium 1.4 mg/dL (1.6-2.6); Phosphorous 7.1 mg/dL (2.7-4.5)
[2020-11-27 13:04] LABS: INR 11.5; Prothrombin Time 124.6 Seconds (9.4-12.1)
[2020-11-27] MEDS ORDERED: 0.9 % Sodium Chloride 250 ML ONE (15:14)
[2020-11-27] MEDS ORDERED: Perflutren Lipid Microsphere 1.3 ML in 0.9 % Sodium Chloride 8.7 ML IVP PRN ×2 (15:15→17:07)
[2020-11-27] MEDS ORDERED: *HR* Norepinephrine 4 MG/4 ML VIAL IVC ONE (15:15)
[2020-11-27 15:46] LABS: Prothrombin Time 133.7 Seconds (9.4-12.1)
[2020-11-27 15:47] LABS: INR 12.4
[2020-11-27] MEDS ORDERED: Naloxone 0.4 MG/ML INJ IVP PRN (16:00)
[2020-11-27] MEDS ORDERED: Acetaminophen 325 MG TABLET PO PRN (16:00)
[2020-11-27] MEDS: Norepinephrine 4 MG/254 ML IV.SOLN IVC SCH ×2 (16:02→23:35)
[2020-11-27 16:03] LABS: Thyroid Stimulating Hormone 1.668 mcIU/mL (0.340-5.600)
[2020-11-27] MEDS ORDERED: *HR* Phytonadione 5 MG TABLET PO ONE (16:03)
[2020-11-27] MEDS: Albumin 25% 25gram/100mL 25 GM/100 ML IV.SOLN IVC SCH ×2 (18:30→19:51)
[2020-11-27] MEDS: Nystatin POWDER 30 GM BOTTLE TP SCH (19:52)
[2020-11-27] MEDS ORDERED: Sodium Bicarbonate 75 MEQ in 0.45 % Sodium Chloride 1,000 ML IVC SCH (21:46)
[2020-11-27] MEDS: Sodium Bicarbonate 75 MEQ in 0.45 % Sodium Chloride 1,000 ML IVC SCH (23:19)
[2020-11-28 00:59] LABS: INR 11.9; Prothrombin Time 127.9 Seconds (9.4-12.1)
[2020-11-28 02:16] LABS: Bacteria,Urine Few per hpf (None-Few); Bilirubin,Urine Negative (Negative); Blood,Urine Large (Negative); Clarity,Urine Turbid (Clear); Color,Urine Yellow (Yellow); Glucose,Urine (UA) Normal (Normal); Hyaline Casts,Urine Few per lpf (None Seen); Ketones,Urine Negative (Negative); Leukocyte Esterase,Urine Small (Negative); Nitrite,Urine Negative (Negative); Protein,Urine 30 mg/dL (Neg-Trace); RBC,Urine 50-100 per hpf (0-3); Specific Gravity,Urine 1.016 (1.010-1.025); Squamous Epithelial Cell,Urine Few per hpf (None-Few); Urobilinogen,Urine Normal (Normal)
[2020-11-28 03:31] LABS: Basophils % 0.2 %; Eosinophils # 0.1 K/mcL (0.0-0.6); Eosinophils % 1.2 %; Hematocrit 29.2 % (35.3-44.9); Immature Granulocytes % 0.5 % (0-4); Lymphocytes # 0.8 K/mcL (0.6-4.6); Lymphocytes % 9.3 %; Mean Corpuscular HGB Conc 33.9 g/dL (31.6-35.5); Mean Corpuscular Hemoglobin 30.1 pg (28.0-33.3); Mean Corpuscular Volume 88.8 fL (83.0-100.0); Mean Platelet Volume 10.3 fL (9.4-12.4); Monocytes # 0.8 K/mcL (0.0-1.3); Monocytes % 9.7 %; Neutrophils # 6.9 K/mcL (1.6-8.9); Platelet Count 144 K/mcL (140-400); Red Blood Count 3.29 M/mcL (3.82-4.97); Red Cell Distribution Width 13.6 % (11.5-14.5); Segmented Neutrophils % 79.1 %; White Blood Count 8.7 K/mcL (4.3-11.1)
[2020-11-28 03:32] LABS: Hemoglobin 9.9 g/dL (11.5-15.4)
[2020-11-28 03:46] LABS: Calcium 7.7 mg/dL (8.6-10.3); Magnesium 1.7 mg/dL (1.6-2.6); Potassium 3.5 mEq/L (3.5-5.1)
[2020-11-28] MEDS: Norepinephrine 4 MG/254 ML IV.SOLN IVC SCH ×2 (04:34→14:30)
[2020-11-28] MEDS: Sodium Bicarbonate 75 MEQ in 0.45 % Sodium Chloride 1,000 ML IVC SCH ×3 (06:03→20:24)
[2020-11-28] MEDS ORDERED: *HR* Phytonadione 10 MG/ML AMPUL SQ ONE (07:53)
[2020-11-28] MEDS: Albumin 25% 25gram/100mL 25 GM/100 ML IV.SOLN IVC SCH ×4 (08:47→18:06)
[2020-11-28] MEDS: Nystatin POWDER 30 GM BOTTLE TP SCH ×3 (08:49→20:23)
[2020-11-28 09:30] LABS: Basophils % 0.1 %; Eosinophils # 0.1 K/mcL (0.0-0.6); Eosinophils % 0.8 %; Hematocrit 30.1 % (35.3-44.9); Immature Granulocytes % 0.5 % (0-4); Lymphocytes # 0.6 K/mcL (0.6-4.6); Lymphocytes % 7.2 %; Mean Corpuscular HGB Conc 33.2 g/dL (31.6-35.5); Mean Corpuscular Hemoglobin 29.5 pg (28.0-33.3); Mean Corpuscular Volume 88.8 fL (83.0-100.0); Mean Platelet Volume 10.3 fL (9.4-12.4); Monocytes # 0.6 K/mcL (0.0-1.3); Neutrophils # 6.4 K/mcL (1.6-8.9); Platelet Count 144 K/mcL (140-400); Red Blood Count 3.39 M/mcL (3.82-4.97); Red Cell Distribution Width 13.7 % (11.5-14.5); Segmented Neutrophils % 83.4 %; White Blood Count 7.6 K/mcL (4.3-11.1)
[2020-11-28 09:37] LABS: INR 2.1; Prothrombin Time 24.2 Seconds (9.4-12.1)
[2020-11-28 09:56] LABS: Calcium 7.6 mg/dL (8.6-10.3); Magnesium 1.7 mg/dL (1.6-2.6); Potassium 3.5 mEq/L (3.5-5.1)
[2020-11-28 12:39] LABS: Adenovirus Not Detected (Not Detect); Bordetella Pertussis Not Detected (Not Detect); Chlamydophila pneumoniae Not Detected (Not Detect); Coronavirus 229E Not Detected (Not Detect); Coronavirus HKU1 Not Detected (Not Detect); Coronavirus NL63 Not Detected (Not Detect); Coronavirus OC43 Not Detected (Not Detect); Human Metapneumovirus Not Detected (Not Detect); Human Rhinovirus/Enterovirus Not Detected (Not Detect); Influenza A Subtype 2009 H1 Not Detected (Not Detect); Influenza B Not Detected (Not Detect); Mycoplasma pneumoniae Not Detected (Not Detect); Parainfluenza Virus 1 Not Detected (Not Detect); Parainfluenza Virus 2 Not Detected (Not Detect); Parainfluenza Virus 3 Not Detected (Not Detect); Parainfluenza Virus 4 Not Detected (Not Detect); Respiratory Syncytial Virus Not Detected (Not Detect)
[2020-11-28 12:40] LABS: SARS-CoV-2 DETECTED (Not Detect)
[2020-11-28 13:30] LABS: INR 1.8; Prothrombin Time 20.1 Seconds (9.4-12.1)
[2020-11-28] MEDS ORDERED: *HR* Heparin 5,000 UNIT/ML VIAL IVP PRN ×2 (16:49)
[2020-11-28] MEDS: Heparin 25,000UNIT/250ML 1/2NS 25,000 UNIT/250 ML IV.SOLN IVC SCH (17:49)
[2020-11-28 19:11] LABS: Hematocrit 24.3 % (35.3-44.9); Mean Corpuscular HGB Conc 32.9 g/dL (31.6-35.5); Mean Corpuscular Hemoglobin 29.3 pg (28.0-33.3); Mean Platelet Volume 10.9 fL (9.4-12.4); Platelet Count 100 K/mcL (140-400); Red Blood Count 2.73 M/mcL (3.82-4.97); Red Cell Distribution Width 13.5 % (11.5-14.5); White Blood Count 5.2 K/mcL (4.3-11.1)
[2020-11-28 19:22] LABS: INR 1.6; Prothrombin Time 18.1 Seconds (9.4-12.1)
[2020-11-28] MEDS ORDERED: Albumin 25% 25gram/100mL 25 GM/100 ML IV.SOLN IVPB ONE (21:11)
[2020-11-29] MEDS: Sodium Bicarbonate 75 MEQ in 0.45 % Sodium Chloride 1,000 ML IVC SCH ×3 (03:13→19:35)
[2020-11-29 03:44] LABS: Mean Corpuscular Volume 88.3 fL (83.0-100.0); Red Cell Distribution Width 13.6 % (11.5-14.5)
[2020-11-29 03:46] LABS: Hematocrit 23.3 % (35.3-44.9); Hemoglobin 7.8 g/dL (11.5-15.4); Immature Platelets 3.9 % (1.1-6.1); Mean Corpuscular HGB Conc 33.5 g/dL (31.6-35.5); Mean Corpuscular Hemoglobin 29.5 pg (28.0-33.3); Mean Platelet Volume 10.3 fL (9.4-12.4); Red Blood Count 2.64 M/mcL (3.82-4.97)
[2020-11-29 04:03] LABS: Calcium 7.9 mg/dL (8.6-10.3); Potassium 3.3 mEq/L (3.5-5.1)
[2020-11-29 04:27] LABS: Magnesium 1.6 mg/dL (1.6-2.6)
[2020-11-29] MEDS ORDERED: Magnesium Sulfate 1 GM/102 ML PIGGYBACK IVPB ONE (04:39)
[2020-11-29] MEDS: Nystatin POWDER 30 GM BOTTLE TP SCH ×3 (08:50→19:33)
[2020-11-29 11:54] LABS: INR 1.3; Prothrombin Time 15.4 Seconds (9.4-12.1)
[2020-11-29] MEDS: Insulin LISPRO 300 UNITS/3 ML VIAL SUBQ SCH ×3 (12:19→20:03)
[2020-11-29] MEDS: Heparin 25,000UNIT/250ML 1/2NS 25,000 UNIT/250 ML IV.SOLN IVC SCH ×2 (14:16→23:20)
[2020-11-29] MEDS ORDERED: *HR* Warfarin 2.5 MG TABLET PO ONE (18:00)
[2020-11-29] MEDS ORDERED: Warfarin perPT PO PRN (18:00)
[2020-11-30 05:22] LABS: Hematocrit 22.8 % (35.3-44.9); Hemoglobin 7.6 g/dL (11.5-15.4); Mean Corpuscular HGB Conc 33.3 g/dL (31.6-35.5); Mean Corpuscular Hemoglobin 29.5 pg (28.0-33.3); Mean Corpuscular Volume 88.4 fL (83.0-100.0); Mean Platelet Volume 10.8 fL (9.4-12.4); Platelet Count 102 K/mcL (140-400); Red Blood Count 2.58 M/mcL (3.82-4.97); Red Cell Distribution Width 13.7 % (11.5-14.5)
[2020-11-30 05:23] LABS: White Blood Count 7.7 K/mcL (4.3-11.1)
[2020-11-30 05:34] LABS: INR 1.2; Prothrombin Time 14.2 Seconds (9.4-12.1)
[2020-11-30 05:45] LABS: Calcium 8.3 mg/dL (8.6-10.3); Potassium 3.8 mEq/L (3.5-5.1)
[2020-11-30 08:12] LABS: VBG Ionized Calcium 1.15 mmol/L (1.15-1.35)
[2020-11-30] MEDS: Sodium Bicarbonate 75 MEQ in 0.45 % Sodium Chloride 1,000 ML IVC SCH (08:31)
[2020-11-30] MEDS: Nystatin POWDER 30 GM BOTTLE TP SCH (08:32)
[2020-11-30] MEDS: Insulin LISPRO 300 UNITS/3 ML VIAL SUBQ SCH ×4 (08:33→19:36)
[2020-11-30] MEDS ORDERED: Nystatin POWDER 30 GM BOTTLE TP PRN (09:35)
[2020-11-30] MEDS ORDERED: Fluticasone Propionate Nasal 50 MCG/SPRAY BOTTLE NS PRN (09:35)
[2020-11-30] MEDS ORDERED: *HR* Heparin 5,000 UNIT/ML VIAL IVP PRN ×2 (09:35)
[2020-11-30] MEDS ORDERED: Naloxone 0.4 MG/ML INJ IVP PRN (09:35)
[2020-11-30] MEDS ORDERED: Warfarin perPT PO PRN (09:35)
[2020-11-30] MEDS ORDERED: Perflutren Lipid Microsphere 1.3 ML in 0.9 % Sodium Chloride 8.7 ML IVP PRN (09:35)
[2020-11-30] MEDS ORDERED: Acetaminophen 325 MG TABLET PO PRN (09:35)
[2020-11-30] MEDS ORDERED: 0.9 % Sodium Chloride 500 ML IVC SCH (11:15)
[2020-11-30] MEDS ORDERED: 0.9 % Sodium Chloride 1,000 ML IVC SCH (11:15)
[2020-11-30] MEDS ORDERED: Insulin LISPRO 300 UNITS/3 ML VIAL SUBQ SCH (11:30)
[2020-11-30] MEDS ORDERED: D5% in Water 1,000 ML IVC PRN (13:17)
[2020-11-30] MEDS ORDERED: Dextrose Gel 15 GM/37.5 ML TUBE PO PRN ×2 (13:17)
[2020-11-30] MEDS ORDERED: *HR* Dextrose 50 % in Water (Vial) 50 ML VIAL IVP PRN (13:17)
[2020-11-30] MEDS ORDERED: Nystatin POWDER 30 GM BOTTLE TP SCH (15:00)
[2020-11-30] MEDS ORDERED: *HR* Warfarin 3 MG TABLET PO ONE (18:00)
[2020-11-30] MEDS: Heparin 25,000UNIT/250ML 1/2NS 25,000 UNIT/250 ML IV.SOLN IVC SCH ×2 (19:34→22:50)
[2020-11-30] MEDS: Insulin DETEMIR 100 UNIT/ML X5UNITS SUBQ SCH (19:39)
[2020-12-01 02:59] LABS: Hematocrit 23.5 % (35.3-44.9); Hemoglobin 7.8 g/dL (11.5-15.4); Mean Corpuscular HGB Conc 33.2 g/dL (31.6-35.5); Mean Corpuscular Hemoglobin 29.7 pg (28.0-33.3); Mean Corpuscular Volume 89.4 fL (83.0-100.0); Mean Platelet Volume 11.3 fL (9.4-12.4); Platelet Count 105 K/mcL (140-400); Red Blood Count 2.63 M/mcL (3.82-4.97); White Blood Count 8.9 K/mcL (4.3-11.1)
[2020-12-01 03:09] LABS: INR 1.2; Prothrombin Time 13.7 Seconds (9.4-12.1)
[2020-12-01 03:21] LABS: Calcium 8.8 mg/dL (8.6-10.3); Magnesium 1.6 mg/dL (1.6-2.6); Potassium 4.2 mEq/L (3.5-5.1)
[2020-12-01] MEDS: Insulin LISPRO 300 UNITS/3 ML VIAL SUBQ SCH ×4 (08:22→20:33)
[2020-12-01] MEDS ORDERED: 0.9 % Sodium Chloride 1,000 ML IVC SCH (16:45)
[2020-12-01] MEDS ORDERED: *HR* Warfarin 3 MG TABLET PO ONE (18:00)
[2020-12-01] MEDS: Insulin DETEMIR 100 UNIT/ML X5UNITS SUBQ SCH (20:43)
[2020-12-02 04:48] LABS: Basophils % 0.3 %; Eosinophils # 0.2 K/mcL (0.0-0.6); Eosinophils % 1.7 %; Hemoglobin 7.5 g/dL (11.5-15.4); Immature Granulocytes % 2.8 % (0-4); Lymphocytes % 10.3 %; Mean Corpuscular HGB Conc 32.6 g/dL (31.6-35.5); Mean Corpuscular Hemoglobin 29.5 pg (28.0-33.3); Mean Corpuscular Volume 90.6 fL (83.0-100.0); Mean Platelet Volume 10.8 fL (9.4-12.4); Monocytes # 1.2 K/mcL (0.0-1.3); Monocytes % 12.6 %; Neutrophils # 6.8 K/mcL (1.6-8.9); Platelet Count 111 K/mcL (140-400); Red Blood Count 2.54 M/mcL (3.82-4.97); Red Cell Distribution Width 14.3 % (11.5-14.5); Segmented Neutrophils % 72.3 %; White Blood Count 9.4 K/mcL (4.3-11.1)
[2020-12-02 04:57] LABS: INR 1.2; Prothrombin Time 13.6 Seconds (9.4-12.1)
[2020-12-02 05:04] LABS: Potassium 4.5 mEq/L (3.5-5.1)
[2020-12-02] MEDS: Insulin LISPRO 300 UNITS/3 ML VIAL SUBQ SCH ×4 (07:38→20:31)
[2020-12-02] MEDS ORDERED: 0.9 % Sodium Chloride 1,000 ML IVC SCH (11:45)
[2020-12-02] MEDS: Heparin 25,000UNIT/250ML 1/2NS 25,000 UNIT/250 ML IV.SOLN IVC SCH (12:18)
[2020-12-02] MEDS: Pantoprazole 40 MG VIAL IVP SCH ×2 (12:51→20:30)
[2020-12-02 15:39] LABS: % Iron Saturation 19 % (15-50); Iron 45 mcg/dL (50-170); Transferrin 166 mg/dL (203-362)
[2020-12-02 15:57] LABS: Ferritin 230 ng/mL (10-120)
[2020-12-02 16:15] LABS: Folate > 22.3 ng/mL (3.0-16.0); Vitamin B12 707 pg/mL (250-1100)
[2020-12-02] MEDS ORDERED: *HR* Warfarin 5 MG TABLET PO ONE (18:00)
[2020-12-02] MEDS: Insulin DETEMIR 100 UNIT/ML X5UNITS SUBQ SCH (20:25)
[2020-12-03 04:45] LABS: Hemoglobin 8.5 g/dL (11.5-15.4); Immature Granulocytes % 1.9 % (0-4); Lymphocytes % 9.6 %; Mean Corpuscular HGB Conc 32.7 g/dL (31.6-35.5); Mean Corpuscular Hemoglobin 30.2 pg (28.0-33.3); Mean Corpuscular Volume 92.5 fL (83.0-100.0); Mean Platelet Volume 10.8 fL (9.4-12.4); Monocytes % 11.1 %; Platelet Count 148 K/mcL (140-400); Red Blood Count 2.81 M/mcL (3.82-4.97); Segmented Neutrophils % 76.3 %
[2020-12-03 04:46] LABS: Basophils % 0.3 %; Eosinophils # 0.1 K/mcL (0.0-0.6); Eosinophils % 0.8 %; Lymphocytes # 1.4 K/mcL (0.6-4.6); Monocytes # 1.7 K/mcL (0.0-1.3); Nucleated Red Blood Cells 0.3 /100 WBC (0)
[2020-12-03 04:47] LABS: Neutrophils # 11.4 K/mcL (1.6-8.9); White Blood Count 14.9 K/mcL (4.3-11.1)
[2020-12-03 04:52] LABS: INR 1.2; Prothrombin Time 13.4 Seconds (9.4-12.1)
[2020-12-03 05:03] LABS: Albumin 3.8 g/dL (3.5-5.7); Albumin/Globulin Ratio 1.6 (1.1-2.2); Bilirubin,Total 1.4 mg/dL (0.3-1.0); Calcium 9.6 mg/dL (8.6-10.3); Globulin 2.4 g/dL (2.4-3.5); Potassium 4.7 mEq/L (3.5-5.1); Total Protein 6.2 g/dL (6.4-8.9)
[2020-12-03] MEDS: Insulin LISPRO 300 UNITS/3 ML VIAL SUBQ SCH ×4 (08:54→23:10)
[2020-12-03] MEDS: Pantoprazole 40 MG VIAL IVP SCH ×2 (08:56→22:11)
[2020-12-03] MEDS: Metoprolol XL (24 HR) Succ 50 MG TAB.ER.24H PO SCH (12:33)
[2020-12-03] MEDS ORDERED: *HR* Metoprolol 5 MG/5 ML VIAL IVP ONE (12:56)
[2020-12-03] MEDS: Ipratropium 1 PUFF INHALER IH SCH ×2 (17:21→19:56)
[2020-12-03] MEDS ORDERED: *HR* Warfarin 5 MG TABLET PO ONE (18:00)
[2020-12-03] MEDS: Insulin DETEMIR 100 UNIT/ML X5UNITS SUBQ SCH (23:17)
[2020-12-04] MEDS: Ipratropium 1 PUFF INHALER IH SCH ×7 (00:08→23:37)
[2020-12-04 03:48] LABS: Eosinophils % 0.1 %; Hematocrit 23.2 % (35.3-44.9); Hemoglobin 7.6 g/dL (11.5-15.4); Lymphocytes # 0.4 K/mcL (0.6-4.6); Lymphocytes % 3.7 %; Mean Corpuscular HGB Conc 32.8 g/dL (31.6-35.5); Mean Corpuscular Hemoglobin 30.4 pg (28.0-33.3); Mean Corpuscular Volume 92.8 fL (83.0-100.0); Mean Platelet Volume 10.7 fL (9.4-12.4); Monocytes # 0.4 K/mcL (0.0-1.3); Monocytes % 3.7 %; Neutrophils # 9.4 K/mcL (1.6-8.9); Nucleated Red Blood Cells 0.2 /100 WBC (0); Platelet Count 102 K/mcL (140-400); Red Cell Distribution Width 15.5 % (11.5-14.5); Segmented Neutrophils % 91.5 %; White Blood Count 10.2 K/mcL (4.3-11.1)
[2020-12-04 04:00] LABS: INR 1.5; Prothrombin Time 16.7 Seconds (9.4-12.1)
[2020-12-04 04:09] LABS: Calcium 9.8 mg/dL (8.6-10.3); Potassium 5.2 mEq/L (3.5-5.1)
[2020-12-04] MEDS: Metoprolol XL (24 HR) Succ 50 MG TAB.ER.24H PO SCH (08:41)
[2020-12-04] MEDS: Insulin LISPRO 300 UNITS/3 ML VIAL SUBQ SCH ×4 (08:48→21:10)
[2020-12-04] MEDS: Pantoprazole 40 MG VIAL IVP SCH ×2 (10:58→21:11)
[2020-12-04 11:34] LABS: Hematocrit 24.4 % (35.3-44.9); Hemoglobin 7.9 g/dL (11.5-15.4)
[2020-12-04 11:57] LABS: Calcium 10.1 mg/dL (8.6-10.3)
[2020-12-04] MEDS ORDERED: *HR* Warfarin 5 MG TABLET PO ONE (18:00)
[2020-12-04] MEDS: Insulin DETEMIR 100 UNIT/ML X5UNITS SUBQ SCH (21:11)
[2020-12-05] MEDS: Ipratropium 1 PUFF INHALER IH SCH ×6 (04:08→23:17)
[2020-12-05 05:29] LABS: Hemoglobin 7.3 g/dL (11.5-15.4); Immature Granulocytes % 0.8 % (0-4); Lymphocytes # 0.6 K/mcL (0.6-4.6); Lymphocytes % 5.6 %; Mean Corpuscular HGB Conc 31.7 g/dL (31.6-35.5); Mean Corpuscular Hemoglobin 29.6 pg (28.0-33.3); Mean Corpuscular Volume 93.1 fL (83.0-100.0); Mean Platelet Volume 10.7 fL (9.4-12.4); Monocytes # 0.6 K/mcL (0.0-1.3); Neutrophils # 8.8 K/mcL (1.6-8.9); Nucleated Red Blood Cells 0.3 /100 WBC (0); Platelet Count 106 K/mcL (140-400); Red Blood Count 2.47 M/mcL (3.82-4.97); Red Cell Distribution Width 15.6 % (11.5-14.5); Segmented Neutrophils % 87.6 %
[2020-12-05 05:38] LABS: INR 2.3; Prothrombin Time 26.3 Seconds (9.4-12.1)
[2020-12-05 05:48] LABS: Calcium 9.8 mg/dL (8.6-10.3); Potassium 4.7 mEq/L (3.5-5.1)
[2020-12-05] MEDS: Metoprolol XL (24 HR) Succ 50 MG TAB.ER.24H PO SCH (09:14)
[2020-12-05] MEDS: Insulin LISPRO 300 UNITS/3 ML VIAL SUBQ SCH ×4 (09:19→20:13)
[2020-12-05] MEDS: Pantoprazole 40 MG VIAL IVP SCH ×2 (10:05→20:11)
[2020-12-05] MEDS ORDERED: Iron Sucrose Complex 400 MG in 0.9 % Sodium Chloride 250 ML IVPB ONE (13:15)
[2020-12-05] MEDS ORDERED: *HR* Warfarin 2 MG TABLET PO ONE (18:00)
[2020-12-05] MEDS: Insulin DETEMIR 100 UNIT/ML X5UNITS SUBQ SCH (22:16)
[2020-12-06] MEDS: Ipratropium 1 PUFF INHALER IH SCH ×6 (04:04→23:28)
[2020-12-06 07:18] LABS: Hematocrit 24.3 % (35.3-44.9); Hemoglobin 7.9 g/dL (11.5-15.4); Mean Corpuscular HGB Conc 32.5 g/dL (31.6-35.5); Mean Corpuscular Hemoglobin 30.9 pg (28.0-33.3); Mean Corpuscular Volume 94.9 fL (83.0-100.0); Mean Platelet Volume 11.1 fL (9.4-12.4); Platelet Count 100 K/mcL (140-400); Red Blood Count 2.56 M/mcL (3.82-4.97); Red Cell Distribution Width 15.5 % (11.5-14.5); White Blood Count 11.5 K/mcL (4.3-11.1)
[2020-12-06 07:42] LABS: Calcium 9.8 mg/dL (8.6-10.3); Potassium 4.7 mEq/L (3.5-5.1)
[2020-12-06 07:43] LABS: INR 4.5
[2020-12-06 07:44] LABS: Prothrombin Time 49.6 Seconds (9.4-12.1)
[2020-12-06] MEDS: Pantoprazole 40 MG VIAL IVP SCH (08:09)
[2020-12-06] MEDS: Metoprolol XL (24 HR) Succ 50 MG TAB.ER.24H PO SCH (08:09)
[2020-12-06] MEDS: Insulin LISPRO 300 UNITS/3 ML VIAL SUBQ SCH ×4 (08:12→21:38)
[2020-12-06] MEDS ORDERED: Insulin DETEMIR 100 UNIT/ML X5UNITS SUBQ SCH (21:00)
[2020-12-06] MEDS: Insulin DETEMIR 100 UNIT/ML X5UNITS SUBQ SCH (21:38)
[2020-12-07 02:01] LABS: Basophils % 0.1 %; Hematocrit 25.1 % (35.3-44.9); Hemoglobin 8.1 g/dL (11.5-15.4); Immature Granulocytes % 1.1 % (0-4); Lymphocytes # 0.5 K/mcL (0.6-4.6); Lymphocytes % 4.1 %; Mean Corpuscular HGB Conc 32.3 g/dL (31.6-35.5); Mean Corpuscular Hemoglobin 30.1 pg (28.0-33.3); Mean Corpuscular Volume 93.3 fL (83.0-100.0); Mean Platelet Volume 11.4 fL (9.4-12.4); Monocytes # 0.7 K/mcL (0.0-1.3); Monocytes % 5.8 %; Neutrophils # 11.1 K/mcL (1.6-8.9); Nucleated Red Blood Cells 1.8 /100 WBC (0); Platelet Count 108 K/mcL (140-400); Red Blood Count 2.69 M/mcL (3.82-4.97); Red Cell Distribution Width 15.9 % (11.5-14.5); Segmented Neutrophils % 88.9 %; White Blood Count 12.5 K/mcL (4.3-11.1)
[2020-12-07 02:19] LABS: Prothrombin Time 60.6 Seconds (9.4-12.1)
[2020-12-07 02:22] LABS: Albumin 3.8 g/dL (3.5-5.7); Albumin/Globulin Ratio 1.5 (1.1-2.2); Bilirubin,Total 1.3 mg/dL (0.3-1.0); Calcium 9.9 mg/dL (8.6-10.3); Globulin 2.5 g/dL (2.4-3.5); Potassium 4.5 mEq/L (3.5-5.1); Total Protein 6.3 g/dL (6.4-8.9)
[2020-12-07] MEDS: Ipratropium 1 PUFF INHALER IH SCH ×6 (03:44→23:46)
[2020-12-07 05:01] LABS: INR 5.5
[2020-12-07] MEDS: Insulin LISPRO 300 UNITS/3 ML VIAL SUBQ SCH ×4 (09:09→20:48)
[2020-12-07] MEDS: Metoprolol XL (24 HR) Succ 50 MG TAB.ER.24H PO SCH (09:30)
[2020-12-07] MEDS: Insulin DETEMIR 100 UNIT/ML X5UNITS SUBQ SCH (20:44)
[2020-12-08] MEDS: Ipratropium 1 PUFF INHALER IH SCH ×5 (03:46→20:20)
[2020-12-08] MEDS: Insulin LISPRO 300 UNITS/3 ML VIAL SUBQ SCH ×4 (07:56→21:13)
[2020-12-08] MEDS: Metoprolol XL (24 HR) Succ 50 MG TAB.ER.24H PO SCH (07:57)
[2020-12-08] MEDS ORDERED: traZODone 50 MG TABLET PO PRN (11:49)
[2020-12-08] MEDS: Insulin DETEMIR 100 UNIT/ML X5UNITS SUBQ SCH (21:14)
[2020-12-09] MEDS: Ipratropium 1 PUFF INHALER IH SCH ×6 (00:07→21:15)
[2020-12-09 01:14] LABS: Hematocrit 26.8 % (35.3-44.9); Hemoglobin 8.7 g/dL (11.5-15.4); Mean Corpuscular HGB Conc 32.5 g/dL (31.6-35.5); Mean Corpuscular Hemoglobin 30.4 pg (28.0-33.3); Mean Corpuscular Volume 93.7 fL (83.0-100.0); Mean Platelet Volume 11.8 fL (9.4-12.4); Platelet Count 104 K/mcL (140-400); Red Blood Count 2.86 M/mcL (3.82-4.97); Red Cell Distribution Width 16.5 % (11.5-14.5); White Blood Count 13.7 K/mcL (4.3-11.1)
[2020-12-09 01:26] LABS: INR 5.6; Prothrombin Time 62.1 Seconds (9.4-12.1)
[2020-12-09 01:31] LABS: Calcium 9.4 mg/dL (8.6-10.3); Potassium 4.2 mEq/L (3.5-5.1)
[2020-12-09 01:33] LABS: Calcium 9.5 mg/dL (8.6-10.3); Magnesium 1.3 mg/dL (1.6-2.6); Potassium 4.2 mEq/L (3.5-5.1)
[2020-12-09] MEDS ORDERED: *HR* Phytonadione 5 MG TABLET PO ONE (07:15)
[2020-12-09] MEDS: Metoprolol XL (24 HR) Succ 50 MG TAB.ER.24H PO SCH (07:36)
[2020-12-09] MEDS: Insulin LISPRO 300 UNITS/3 ML VIAL SUBQ SCH ×4 (07:47→20:31)
[2020-12-09] MEDS: Insulin DETEMIR 100 UNIT/ML X5UNITS SUBQ SCH (20:30)
[2020-12-10] MEDS: Ipratropium 1 PUFF INHALER IH SCH ×5 (00:08→15:57)
[2020-12-10 01:49] LABS: Hematocrit 29.7 % (35.3-44.9); Hemoglobin 9.4 g/dL (11.5-15.4); Immature Platelets 9.8 % (1.1-6.1); Mean Corpuscular HGB Conc 31.6 g/dL (31.6-35.5); Mean Corpuscular Hemoglobin 30.2 pg (28.0-33.3); Mean Corpuscular Volume 95.5 fL (83.0-100.0); Red Blood Count 3.11 M/mcL (3.82-4.97); White Blood Count 16.4 K/mcL (4.3-11.1)
[2020-12-10 01:55] LABS: INR 2.2; Prothrombin Time 24.9 Seconds (9.4-12.1)
[2020-12-10 02:06] LABS: BUN/Creatinine Ratio 63 (6-26); Blood Urea Nitrogen 59 mg/dL (8-23); Calcium 9.6 mg/dL (8.6-10.3); Carbon Dioxide 24 mEq/L (23-29); Chloride 104 mEq/L (98-107); Glucose 150 mg/dL (70-105); Osmolality,Calculated 303 (280-300); Potassium 4.3 mEq/L (3.5-5.1); Sodium 137 mEq/L (136-145); eGFR For African Americans > 60 (> 60); eGFR For Non-African Americans 58 (> 60)
[2020-12-10] MEDS: Metoprolol XL (24 HR) Succ 50 MG TAB.ER.24H PO SCH (07:20)
[2020-12-10] MEDS: Insulin LISPRO 300 UNITS/3 ML VIAL SUBQ SCH ×2 (11:47→12:05)
[2020-12-10 11:57] VITALS: BP 145/77; PULSE 102; TEMP 97.4
[2020-12-10 17:49] VITALS: O2SAT 97
[2020-12-10] MEDS ORDERED: *HR* Warfarin 2 MG TABLET PO ONE (18:00)
== END 2020-12-10 18:03 | DRG 177 ==
LOC: ICNU 11:16 → CDU 11:16 → EMEROOARM 11:16 → SUATTDRO 16:40 → ICNU 17:15 → 3BNU 12-01 18:06 → 2NNU 12-05 22:20 → 2ANU 12-10 10:56
PROVIDERS: ADMIT Family Medicine; ATTEND Internal Medicine

== ENCOUNTER 2021-10-15 11:10 | Inpatient (IN) ==
[2021-10-15] MEDS ORDERED: Ondansetron 4 MG/2 ML VIAL IVP ONE (12:14)
[2021-10-15] MEDS ORDERED: *HR* Metoprolol 5 MG/5 ML VIAL IVP ONE (12:14)
[2021-10-15] MEDS: 0.9 % Sodium Chloride 1,000 ML IVC SCH ×3 (12:36→18:21)
[2021-10-15 12:59] LABS: Basophils % 0.3 %; Eosinophils % 0.4 %; Hematocrit 33.1 % (35.3-44.9); Immature Granulocytes % 0.1 % (0-4); Lymphocytes # 0.9 K/mcL (0.6-4.6); Lymphocytes % 12.9 %; Mean Corpuscular HGB Conc 33.2 g/dL (31.6-35.5); Mean Corpuscular Hemoglobin 30.5 pg (28.0-33.3); Mean Corpuscular Volume 91.7 fL (83.0-100.0); Mean Platelet Volume 12.8 fL (9.4-12.4); Monocytes # 0.6 K/mcL (0.0-1.3); Neutrophils # 5.4 K/mcL (1.6-8.9); Platelet Count 123 K/mcL (140-400); Red Blood Count 3.61 M/mcL (3.82-4.97); Red Cell Distribution Width 11.9 % (11.5-14.5); Segmented Neutrophils % 78.3 %
[2021-10-15 13:04] LABS: VBG HCO3 23 mEq/L (21-27); VBG PCO2 27 mmHg (41-51); VBG PH 7.55 pH Units (7.32-7.42); VBG PO2 38 mmHg (25-50)
[2021-10-15 13:07] LABS: INR 2.9
[2021-10-15 13:41] LABS: Calcium 9.9 mg/dL (8.6-10.3); Potassium 3.3 mEq/L (3.5-5.1)
[2021-10-15] MEDS ORDERED: Insulin Regular, Human 100 UNIT/ML SUBQ ONE (14:10)
[2021-10-15 14:58] LABS: Bilirubin,Urine Negative (Negative); Blood,Urine Trace (Negative); Clarity,Urine Clear (Clear); Color,Urine Light-Yellow (Yellow); Glucose,Urine (UA) >=1000 mg/dL (Normal); Ketones,Urine 20 mg/dL (Negative); Leukocyte Esterase,Urine Large (Negative); Nitrite,Urine Negative (Negative); PH,Urine 6.5 pH Units (5.0-8.0); Protein,Urine Trace mg/dL (Neg-Trace); Specific Gravity,Urine 1.023 (1.010-1.025); Squamous Epithelial Cell,Urine Few per hpf (None-Few); Urobilinogen,Urine Normal (Normal); WBC,Urine 30-50 per hpf (0-3)
[2021-10-15] MEDS ORDERED: Magnesium Sulfate 1 GM/102 ML PIGGYBACK IVPB ONE (15:14)
[2021-10-15] MEDS ORDERED: Melatonin 3 MG TABLET PO PRN (15:30)
[2021-10-15] MEDS ORDERED: Ondansetron 4 MG/2 ML VIAL IVP PRN (15:30)
[2021-10-15] MEDS ORDERED: Naloxone 0.4 MG/ML INJ IVP PRN (15:30)
[2021-10-15] MEDS ORDERED: *HR* Dextrose 50 % in Water (Syg) 50 ML SYRINGE IVP PRN (16:28)
[2021-10-15] MEDS ORDERED: D5% in Water 1,000 ML IVC PRN (16:28)
[2021-10-15] MEDS ORDERED: Dextrose Gel 15 GM/37.5 ML TUBE PO PRN ×2 (16:28)
[2021-10-15] MEDS: Insulin LISPRO 300 UNITS/3 ML VIAL SUBQ SCH ×2 (18:17→19:59)
[2021-10-15] MEDS: Metoprolol XL (24 HR) Succ 50 MG TAB.ER.24H PO SCH (18:21)
[2021-10-15] MEDS ORDERED: *HR* Warfarin 2.5 MG TABLET PO ONE (19:39)
[2021-10-15] MEDS ORDERED: Warfarin perPT PO PRN (19:49)
[2021-10-15] MEDS: Insulin DETEMIR 100 UNIT/ML X5UNITS SUBQ SCH (20:27)
[2021-10-16 02:55] LABS: Basophils % 0.3 %; Eosinophils # 0.2 K/mcL (0.0-0.6); Eosinophils % 2.8 %; Hematocrit 28.5 % (35.3-44.9); Immature Granulocytes % 0.3 % (0-4); Lymphocytes # 1.3 K/mcL (0.6-4.6); Lymphocytes % 17.9 %; Mean Corpuscular Hemoglobin 30.5 pg (28.0-33.3); Mean Corpuscular Volume 92.5 fL (83.0-100.0); Mean Platelet Volume 12.1 fL (9.4-12.4); Monocytes # 0.6 K/mcL (0.0-1.3); Monocytes % 8.3 %; Platelet Count 109 K/mcL (140-400); Red Blood Count 3.08 M/mcL (3.82-4.97); Red Cell Distribution Width 11.9 % (11.5-14.5); Segmented Neutrophils % 70.4 %
[2021-10-16 02:57] LABS: Hemoglobin 9.4 g/dL (11.5-15.4)
[2021-10-16 03:02] LABS: INR 2.6; Prothrombin Time 28.5 Seconds (9.4-12.1)
[2021-10-16 03:06] LABS: Estimated Average Glucose 301 mg/dl; Hemoglobin A1C 12.1 %
[2021-10-16 03:16] LABS: Calcium 8.2 mg/dL (8.6-10.3); Magnesium 1.8 mg/dL (1.6-2.6); Potassium 3.1 mEq/L (3.5-5.1)
[2021-10-16] MEDS: 0.9 % Sodium Chloride 1,000 ML IVC SCH (03:43)
[2021-10-16] MEDS: Insulin LISPRO 300 UNITS/3 ML VIAL SUBQ SCH ×4 (08:04→21:30)
[2021-10-16] MEDS: Metoprolol XL (24 HR) Succ 50 MG TAB.ER.24H PO SCH (08:05)
[2021-10-16] MEDS: Metoprolol XL (24 HR) Succ 25 MG TAB.ER.24H PO SCH (10:11)
[2021-10-16] MEDS ORDERED: *HR* Warfarin 2.5 MG TABLET PO ONE (18:00)
[2021-10-16] MEDS: Insulin DETEMIR 100 UNIT/ML X5UNITS SUBQ SCH (21:31)
[2021-10-17 05:49] LABS: Basophils % 0.4 %; Eosinophils # 0.2 K/mcL (0.0-0.6); Hematocrit 28.7 % (35.3-44.9); Hemoglobin 9.2 g/dL (11.5-15.4); Immature Granulocytes % 0.4 % (0-4); Immature Platelets 9.6 % (1.1-6.1); Lymphocytes # 1.1 K/mcL (0.6-4.6); Lymphocytes % 19.9 %; Mean Corpuscular HGB Conc 32.1 g/dL (31.6-35.5); Mean Corpuscular Hemoglobin 30.9 pg (28.0-33.3); Mean Corpuscular Volume 96.3 fL (83.0-100.0); Mean Platelet Volume 12.6 fL (9.4-12.4); Monocytes # 0.5 K/mcL (0.0-1.3); Monocytes % 10.1 %; Neutrophils # 3.5 K/mcL (1.6-8.9); Red Blood Count 2.98 M/mcL (3.82-4.97); Red Cell Distribution Width 12.4 % (11.5-14.5); Segmented Neutrophils % 66.2 %; White Blood Count 5.3 K/mcL (4.3-11.1)
[2021-10-17 05:50] LABS: Platelet Count 89 K/mcL (140-400)
[2021-10-17 05:54] LABS: INR 3.3; Prothrombin Time 36.9 Seconds (9.4-12.1)
[2021-10-17 06:19] LABS: Calcium 7.9 mg/dL (8.6-10.3); Magnesium 1.5 mg/dL (1.6-2.6); Potassium 4.2 mEq/L (3.5-5.1)
[2021-10-17 06:31] VITALS: BP 109/64; PULSE 78; TEMP 98.7; O2SAT 100
[2021-10-17] MEDS: Insulin LISPRO 300 UNITS/3 ML VIAL SUBQ SCH (07:37)
[2021-10-17] MEDS: Metoprolol XL (24 HR) Succ 25 MG TAB.ER.24H PO SCH (07:38)
== END 2021-10-17 12:00 | disposition home health service (06) | DRG 683 ==
LOC: EMEROOARM 11:10 → 3NENU 11:10
PROVIDERS: ADMIT Internal Medicine; ATTEND Internal Medicine